=== PATIENT | female | born 1930 | race Caucasian/White ===

== ENCOUNTER 2017-06-11 19:28 | Emergency (ER) | payer MEDICARE, BC ==
--- NOTE | 2017-06-11 19:50 | EDM.PDOC ---
ED HPI GENERAL MEDICAL PROBLEM - General Chief Complaint: Abdominal Pain Stated Complaint: CONSTIPATION Time Seen by Provider: 06/11/17 20:00 Source of Information: Reports: Patient History Limitations: Reports: No Limitations - History of Present Illness INITIAL COMMENTS - FREE TEXT/NARRATIVE: 87-year-old female presents to the ED with complaints of large amount of pressure in her rectal area. She states she has not been able to have a good bowel movement for the last 4 days. Some blood noted with wiping. Has constant suprapubic pressure discomfort. Feels she is emptying her bladder satisfactorily. She states she has problems with intermittent constipation but doesn't usually didn't take medicine daily to keep working. Did have prune juice earlier today. Mild abdominal cramping. Some anorexia and did not eat any supper tonight. No fever or chills. Previous abdominal surgery was that of a appendectomy and total abdominal hysterectomy and BSO. Onset: Gradual Onset Date: 06/07/17 Duration: Day(s):, Waxing/Waning Location: Reports: Other Quality: Reports: Ache, Pressure Severity: Moderate Improves with: Reports: None Worsens with: Reports: Other (Sitting on the toilet and pushing.) Context: Denies: Activity, Exercise, Lifting, Sick Contact, Trauma, Other Associated Symptoms: Reports: Loss of Appetite. 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.) Rectal Pain Score (Numeric/FACES): 10 - Related Data Allergies Allergy/AdvReac Type Severity Reaction Status Date / Time atorvastatin calcium Allergy Leg Cramps Verified 02/04/15 14:24 [From Lipitor] Home Meds: Home Meds Aspirin [Halfprin] 81 mg PO DAILY 06/11/17 [History] Calcitriol [Rocaltrol] 0.25 mg PO BID 06/11/17 [History] Cholecalciferol (Vitamin D3) [Vitamin D3] 1,000 unit PO DAILY 06/11/17 [History] Cyanocobalamin (Vitamin B12) [Vitamin B12] 100 mcg PO DAILY 06/11/17 [History] Fish Oil/[place]-3 Fatty Acids [Fish Oil 1,000 MG] 1,000 mg PO DAILY 06/11/17 [ History] Levothyroxine 75 mcg PO MOWEFR 06/11/17 [History] Levothyroxine [Synthroid] 50 mcg PO SUTUTHSA 06/11/17 [History] Multivitamin [Multivitamins] 1 tab PO DAILY 06/11/17 [History] Polyethylene Glycol 3350 [MiraLAX] 17 gm PO DAILY #1 cont 06/11/17 [Rx] Rosuvastatin [Crestor] 20 mg PO ASDIRECTED 06/11/17 [History] SitaGLIPtin [Januvia] 100 mg PO DAILY 06/11/17 [History] Sodium Bicarbonate 325 mg PO TID 06/11/17 [History] amLODIPine [Norvasc] 5 mg PO DAILY 06/11/17 [History] glipiZIDE [Glucotrol] 10 mg PO DAILY 06/11/17 [History] Past Medical History Cardiovascular History: Reports: Heart Murmur, High Cholesterol, Hypertension Gastrointestinal History: Reports: Chronic Constipation, Other (See Below) (She has been told that she has an extra 5-8 inches of colon i.e. redundant colon.) Genitourinary History: Reports: Chronic Renal Insuffiency Musculoskeletal History: Reports: Osteoarthritis Endocrine/Metabolic History: Reports: Diabetes, Type II, Osteoporosis, Vitamin D Deficiency Hematologic History: Reports: B12 Deficiency Social & Family History - Living Situation & Occupation Living situation: Reports: Occupation: Retired ED ROS GENERAL - Review of Systems Review Of Systems: See Below Constitutional: Reports: Malaise, Fatigue, Decreased Appetite. Denies: Fever, Chills, Weight Loss HEENT: Reports: Glasses Respiratory: Reports: No Symptoms Cardiovascular: Reports: No Symptoms Endocrine: Reports: Fatigue, Polyuria GI/Abdominal: Reports: Abdominal Pain, Constipation (See history of present illness intermittent problem.), Other : Reports: Frequency (Stress and urge components.), Incontinence Musculoskeletal: Reports: Back Pain, Joint Pain (Mild low back pain. Knees and hips and neck at times) Skin: Reports: No Symptoms Neurological: Reports: No Symptoms Psychiatric: Reports: No Symptoms Hematologic/Lymphatic: Reports: No Symptoms ED EXAM, GI/ABD - Physical Exam Exam: See Below Exam Limited By: No Limitations General Appearance: Alert, WD/WN, Mild Distress Eyes: Bilateral: Normal Appearance (No jaundice.) Respiratory/Chest: No Respiratory Distress, Lungs Clear, Normal Breath Sounds ( Mild tachypnea believe due to beings somewhat anxious.), Respiratory Distress Cardiovascular: Regular Rate, Rhythm, No Edema, No Gallop, No Rub, Systolic Murmur (Grade 2/6 at the left lateral sternal border. Murmur radiates also into the left axilla therefore I think she has a combination of aortic stenosis and mitral insufficiency murmurs. She states she did not know she had a heart murmur.). No: Normal Peripheral Pulses GI/Abdominal Exam: Normal Bowel Sounds, Soft, Non-Tender, No Organomegaly, No Abnormal Bruit, No Mass, Distended (Mildly distended and diffusely tympanitic to percussion.) Back Exam: Normal Inspection. No: CVA Tenderness (L), CVA Tenderness (R) Extremities: Normal Inspection, Normal Range of Motion, Non-Tender, No Pedal Edema Neurological: Alert, Oriented, CN II-XII Intact, Normal Cognition, Normal Gait Psychiatric: Normal Affect, Normal Mood Skin Exam: Warm, Dry, Intact, Normal Color, No Rash Course - Vital Signs Last Recorded V/S: Last Vital Signs Temp 36.2 C 06/11/17 19:57 Pulse 90 06/11/17 19:57 Resp 20 06/11/17 19:57 BP 142/87 H 06/11/17 19:57 Pulse Ox 98 06/11/17 19:57 - Orders/Labs/Meds Orders: Active Orders 24 hr Category Date Time Status Enema [RC] ASDIRECTED Care 06/11/17 20:32 Active Abdomen 1V Flat [CR] Stat Exams 06/11/17 19:50 Taken Meds: Medications Discontinued Medications Generic Name Dose Route Start Last Admin Trade Name Freq PRN Reason Stop Dose Admin Lidocaine HCl 10 ml 06/11/17 20:11 06/11/17 20:37 Xylocaine 2% Jelly MUCMEM 06/11/17 20:12 10 ml ONETIME ONE Administration - Radiology Interpretation Free Text/Narrative:: 87-year-old female presents the ED primarily due to constipation. She has diffuse abdominal pain mostly suprapubic pressure discomfort and significant rectal pressure discomfort. She states she's not had a good bowel movement for 5 days Some bleeding noted when she wipes at the anus. Feels a lot of pressure to go but cannot push out the hard stool. Plan KUB to be done to see the extent of the constipation. Viscous lidocaine gel will be applied to the anus. - Re-Assessments/Exams Free Text/Narrative Re-Assessment/Exam: 06/11/17 20:33 KUB reveals stool in the rectal vault. There is scattered stool throughout stool and air throughout the remainder the colon. No signs of bowel obstruction. Will proceed therefore with viscous lidocaine gel to the anus , then a Fleet enema with mineral oil. 06/11/17 21:59 patient had to be manually disimpacted by nursing staff. She then had a large BM following the disimpaction. She's feeling improved and would therefore she will be discharged home on MiraLAX powder 17 g once daily to try and keep the stools softer and more regular. Departure - Departure Time of Disposition: 21:59 Disposition: Home, Self-Care 01 Condition: Fair Clinical Impression: Constipation by delayed colonic transit Abdominal pain Qualifiers: Abdominal location: lower abdomen, unspecified Qualified Code(s): R10.30 - Lower abdominal pain, unspecified - Discharge Information Prescriptions: Polyethylene Glycol 3350 [MiraLAX] 17 gm PO DAILY #1 cont Referrals: Nehal Ruiz MD [Primary Care Provider] - Forms: ED Department Discharge Additional Instructions: Evaluation the emergency room today in regards to the diffuse lower abdominal pain and rectal pressure discomfort secondary to constipation with no good bowel movement for 4-5 days. X-ray confirmed increased stool throughout a good portion of the colon but particularly down in the rectal vault. Stool plug was removed manually by nursing staff and no good bowel movement followed this. Suggest starting MiraLAX powder 17 g or 1 scoop every single day to prevent similar type of occurrence. This keeps the stool soft and regular. Follow-up with personal physician if any further problems occur. - My Orders Last 24 Hours: My Active Orders 06/11/17 19:50 Abdomen 1V Flat [CR] Stat 06/11/17 20:32 Enema [RC] ASDIRECTED - Assessment/Plan Last 24 Hours: My Active Orders 06/11/17 19:50 Abdomen 1V Flat [CR] Stat 06/11/17 20:32 Enema [RC] ASDIRECTED
[2017-06-11 19:59] VITALS: BP 142/87
[2017-06-11] MEDS ORDERED: Lidocaine 2% Jelly 10 ML Urojet MUCMEM ONE (20:11)
--- NOTE | 2017-06-12 07:01 | CR ---
Abdomen: Supine view of the abdomen was obtained. Comparison: No prior abdominal x-ray. Joint space narrowing is noted within the left hip. Scattered degenerative change is seen within the spine. Several mild compression deformities are noted within the thoracic spine and within L1. Bowel gas pattern appears normal. Calcification seen to the right of the lower spine possibly due to ureteral stone but more likely due to calcified lymph node. Calcification within the right pelvis is likely due to phlebolith. Impression: 1. Findings which are felt to be incidental as described above. Diagnostic code #2
== END 2017-06-11 22:18 | disposition home or self-care (01) ==
LOC: JD.ED 19:28
DX: K59.01 Slow transit constipation (principal); E78.00 Pure hypercholesterolemia, unspecified; I12.9 Hypertensive chronic kidney disease with stage 1 through stage 4 chronic kidney disease, or unspecified chronic kidney disease; N18.9 Chronic kidney disease, unspecified; M19.90 Unspecified osteoarthritis, unspecified site; E11.22 Type 2 diabetes mellitus with diabetic chronic kidney disease; Z88.8 Allergy status to other drugs, medicaments and biological substances; Z79.82 Long term (current) use of aspirin; Z79.899 Other long term (current) drug therapy
CPT/HCPCS: 74000; 74000-26; 99284